=== PATIENT | male | born 1990 | race Caucasian/White ===

== ENCOUNTER → 2021-11-12 | Outpatient (CLI) | payer OTHER, SELFPAY ==
[2021-11-12 13:44] LABS: Absolute Lymphocyte Count 2.82 X10^3/uL (0.83-4.51); Absolute Neutrophil Count 3.8 X10^3/uL (2.0-7.7); Basophil# 0.07 X10^3/uL; Basophil% 0.9 % (0-1); Eosinophils% 3.9 % (0-5); Erythrocyte Sedimentation Rate 11 mm/hr (0-20); Hematocrit 42.7 % (40-54); Hemoglobin 14.1 g/dL (13.0-16.5); Lymphocyte # 2.82 X10^3/ul (0.83-4.51); Lymphocyte % 36.9 % (19-41); Mean Corpuscular Hgb 27.5 pg (27.0-32.0); Mean Corpuscular Volume 83.4 fL (80-94); Mean Platelet Vol. 10.4 fl (6.2-12.0); Monocyte# 0.64 X10^3/uL; Monocyte% 8.4 % (0-10); NRBC Flagged by Analyzer 0 % (0-5); Neutrophil # 3.77 X10^3/uL (2.7-7.7); Neutrophil % 49.4 % (47-70); Platelet Count 240 K/mm3 (150-450); RBC Distribution Width CV 13.7 % (11.6-14.6); RBC Distribution Width SD 41.6 fl (35.1-43.9); Red Blood Count 5.12 M/mm3 (4.6-6.2); White Blood Count 7.6 K/mm3 (4.4-11.0)
[2021-11-12 14:14] LABS: AST(SGOT) 27 U/L (15-37); Alanine Aminotransfer ALT/SGPT 64 U/L (16-61); Albumin, Serum 3.9 g/dL (3.2-5.0); Alkaline Phosphatase 56 U/L (45-117); Anion Gap 7 (5-15); BUN 15 mg/dL (7-18); BUN/Creat Ratio 18.3 RATIO (10-20); CRP < 2.90 mg/L (0.0-3.0); Calcium,Total 9.3 mg/dL (8.5-10.1); Chloride 107 mmol/L (98-107); Creatinine, Serum 0.82 mg/dL (0.70-1.30); EST Glomerular Filtration Rate 115 mL/min (>60); Est Glom Filt Rate - Afr Amer 139 mL/min (>60); Globulin 3.8 g/dL (2.2-4.2); Glucose 92 mg/dL (74-106); LDH 177 U/L (87-241); Potassium 3.8 mmol/L (3.5-5.1); Protein, Total 7.7 g/dL (6.4-8.2); Sodium Level 139 mmol/L (136-145)
[2021-11-12 15:00] LABS: Hepatitis B Surface Antibody Non-Reactive; Rubella IgG Reactive (Nonreactive)
[2021-11-14 15:08] LABS: Anti-Centromere B Ab <0.2 AI (0.0-0.9); Anti-Chromatin <0.2 AI (0.0-0.9); Anti-Jo <0.2 AI (0.0-0.9); Anti-Scleroderma-70 AB <0.2 AI (0.0-0.9); RNP Ab 0.5 AI (0.0-0.9); SJOGREN'S Anti-SS-A test < 0.2 AI (0.0-0.9); SJOGREN'S Anti-SS-B test < 0.2 AI (0.0-0.9); Smith Ab <0.2 AI (0.0-0.9)
[2021-11-14 16:09] LABS: Endomysial Antibody IgA Negative (Negative)
[2021-11-15 15:32] LABS: Anti-dsDNA Ab <1 IU/mL (0-9)
[2021-11-15 15:34] LABS: Immunoglobulin A 278 mg/dL (90-386); t-Transglutaminase IgA <2 U/mL (0-3)
[2021-11-20 17:07] LABS: Albumin 4.1 g/dL (2.9-4.4); Alpha-1-Globulins 0.3 g/dL (0.0-0.4); Alpha-2-Globulins 0.7 g/dL (0.4-1.0); Cytoplasmic Ab (C-ANCA) <1:20 titer (Neg:<1:20); Gamma Globulin 1.1 g/dL (0.4-1.8); HEPATITIS B SURFACE AG Negative (Negative); Hep C Antibodies <0.1 s/co ratio (0.0-0.9); Hepatitis A IgM Antibody Negative (Negative); Hepatitis B Core AB IgM Negative (Negative); Immunoglobulin A 283 mg/dL (90-386); Immunoglobulin E 21 IU/mL (6-495); Immunoglobulin G 1123 mg/dL (603-1613); Immunoglobulin M 117 mg/dL (20-172); PROEL- TOTAL PROTEIN 7.2 g/dL (6.0-8.5); QNTFERON TB Mitogen Value > 10.00 IU/mL (.); QNTFERON TB Nil Value 0.08 IU/mL (.); QNTFERON TB1+ Ag Value 0.07 IU/mL (.); QNTFERON TB2+ Ag Value 0.08 IU/mL (.)
[2021-11-21 10:43] LABS: B. pertussis IgG 1.74 index (0.00-0.94); Mumps Antibody,IgG < 9.0 AU/mL (Immune >10.9); Perinuclear Ab (P-ANCA) <1:20 titer (Neg:<1:20); QNTIFERON TB Positive Criteria Negative (Negative); V-Zoster IgG (Immunity) 2986 index (Immune >165)
== END | disposition home or self-care (01) ==
PROVIDERS: PCP Physician Assistant; Visit Provider Nurse Practitioner Adult Health
DX: K62.5 Hemorrhage of anus and rectum (principal); K52.9 Noninfective gastroenteritis and colitis, unspecified
CPT/HCPCS: 36415; 80053; 80074; 82784; 82785; 83516; 83615; 84165; 85025; 85652; 86140; 86225; 86235; 86255; 86256; 86334; 86480; 86706; 86735; 86762; 86787

== ENCOUNTER → 2021-12-19 | Outpatient (CLI) | payer OTHER, SELFPAY ==
--- NOTE | 2021-12-19 17:45 | RAD_ITS ---
STUDY: X-RAY - ABDOMEN/PELVIS REASON FOR EXAM: Male, 31 years old. Patiency capsule -- Colitis TECHNIQUE: Two AP supine views of the abdomen and pelvis. COMPARISON: None. FINDINGS: Normal visualized lung bases. There is an unremarkable bowel gas pattern. There is no demonstrated free abdominal air. The visualized liver, spleen and kidneys are grossly normal in size and morphology. Normal soft tissue structures. Normal visualized osseous structures. RAD/Abdomen Single View IMPRESSION: Normal x-ray examination of the abdomen and pelvis. Electronically Signed: Amrita Sousa MD at 0:14 EST ,
== END | disposition home or self-care (01) ==
LOC: RAD 17:26
PROVIDERS: PCP Physician Assistant; Referring Provider Nurse Practitioner Adult Health; Visit Provider Nurse Practitioner Adult Health
DX: K52.9 Noninfective gastroenteritis and colitis, unspecified (principal)
CPT/HCPCS: 74018

== ENCOUNTER 2021-12-26 16:23 | Outpatient (CLI) | payer OTHER, SELFPAY ==
--- NOTE | 2021-12-26 16:27 | CT_ITS ---
EXAM: CT ABDOMEN AND PELVIS WITH INTRAVENOUS CONTRAST CLINICAL INDICATION: Crohn''s -- enterography TECHNIQUE: Helically acquired images were obtained of the abdomen and pelvis with intravenous contrast. This CT exam was performed using one or more of the following dose reduction techniques: automated exposure control, adjustment of the mA and/or kV according to patient size, and/or use of iterative reconstruction technique. This report was created using [employer] report generation technology. CONTRAST: Oral and amp; IV BREEZA NEUTRAL and amp; 100mL Isovue-300 COMPARISON: None. FINDINGS: LOWER THORAX: Unremarkable. Lung bases are clear. No cardiomegaly. No significant pericardial effusion. ABDOMEN: LIVER: Unremarkable. Homogeneous. No focal mass. GALLBLADDER AND BILE DUCTS: Unremarkable. No calcified gallstones. No gallbladder distention or wall edema. No intra- or extrahepatic biliary ductal dilation. PANCREAS: Unremarkable. No focal cystic or solid mass. SPLEEN: Unremarkable. Normal size without focal cystic or solid mass. ADRENALS: 3.1 x 2.1 x 2.9 cm left adrenal nodule. CT density measures 44 Hounsfield units. Calcification is noted superiorly. KIDNEYS AND URETERS: Unremarkable. Normal renal size and position. No hydronephrosis. STOMACH AND BOWEL: Unremarkable. No stomach or bowel distention. No focal inflammatory change. PELVIS: APPENDIX: Normal visualized appendix. BLADDER: Unremarkable. REPRODUCTIVE: Unremarkable as visualized. No mass. ABDOMEN and PELVIS: INTRAPERITONEAL SPACE: Unremarkable. No ascites or other fluid collection. No free air. BONES/JOINTS: Unremarkable. No suspicious lytic or blastic abnormality. SOFT TISSUES: Unremarkable. No discrete abdominal or pelvic wall hernia. VASCULATURE: Unremarkable. Abdominal aorta is normal in caliber. LYMPH NODES: Unremarkable. No enlarged lymph nodes. CT/Abdomen/Pelvis WITH Contrast IMPRESSION: 1. No acute findings. 2. Nonspecific left adrenal nodule. ACR White Paper guidelines (Nguyen-Ge, et al. JACR 2017; 14(8):4374-2009) suggest a low dose, non-contrast adrenal CT or chemical-shift adrenal MRI follow-up study. Electronically Signed: Melanie Adamson MD at 18:17 EST Reading Location ID and State: [id number] / Tel , Service support ,
[2021-12-26 17:01] LABS: EGFR FINGERSTICK > 60.0000 mL/min (>60)
--- NOTE | 2022-01-13 15:02 | CASEMGMT ---
INCIDENTAL FINDINGS F/U 12/26/21 CT/Abdomen/Pelvis WITH Contrast IMPRESSION: 1.? No acute findings. 2.? Nonspecific left adrenal nodule.? ACR White Paper guidelines (Betsy et al. JACR 2017; 14(8):9483-4732) suggest a low dose, non-contrast adrenal CT or chemical-shift adrenal MRI follow-up study. 01/10/22 GI Visit Assessment and Plan (1) Crohn's disease:? Status: Acute ? ? ? Plan:? 31 yr old male with moderate to severe inflammatory Crohn's disease in the small bowel and colon. He has extraintestinal manifestations of fatigue and arthralgias. Reviewed results of testing so far with pt and . Will call them with capsule endoscopy result. Needs to submit the stool tests before we can start treatment with an advanced therapy. Plan is stelara 520 mg IV infusion, then Q8wks 90 mg SQ. Needs MMR and twinrix increase dicyclomine to 20 mg BID Continue pantoprazole 40 mg bid f/u 2-3 mos (2) Gastric polyps:? Status: Acute ? ? ? Plan:? No polyps on colonoscopy per records I reviewed therefore he doesn't have FAP. We will be repeating his colonoscopy next year to reevaluate his Crohn's. -TC to f/u regarding incidental findings. Pt did not answer. Complex Priest left a voicemail with name and phone contact information.
== END 2021-12-26 23:59 | disposition home or self-care (01) ==
LOC: CT 16:26
PROVIDERS: PCP Physician Assistant; Referring Provider Nurse Practitioner Adult Health; Visit Provider Nurse Practitioner Adult Health
DX: K50.90 Crohn's disease, unspecified, without complications (principal); K62.5 Hemorrhage of anus and rectum; R19.7 Diarrhea, unspecified
CPT/HCPCS: 74177; Q9967

== ENCOUNTER 2022-01-10 15:27 | Outpatient (CLI) | payer OTHER, SELFPAY ==
[2022-01-14 21:00] LABS: Calprotectin, Stool 27 ug/g (0-120)
== END 2022-01-10 23:59 | disposition home or self-care (01) ==
LOC: LAB 15:28
PROVIDERS: Nurse Practitioner Adult Health; PCP Physician Assistant; Visit Provider Internal Medicine Gastroenterology
DX: K52.9 Noninfective gastroenteritis and colitis, unspecified (principal); K62.5 Hemorrhage of anus and rectum
CPT/HCPCS: 83630; 83993; 87493; 87506

== ENCOUNTER → 2022-03-28 | Outpatient (CLI) | payer OTHER, SELFPAY ==
[2022-03-28 10:44] VITALS: BP 136/81; PULSE 71; RESP 16; TEMP 36.4; BMI 27.2
[2022-03-28] MEDS: 0.9% NaCl Peripheral Flush Adult/Peds IV (11:04)
[2022-03-28] MEDS: 0.9% NaCl IVPB Med Flush (250 mL) 15 ML IV (11:04)
[2022-03-28 12:21] VITALS: BP 111/74; PULSE 59; RESP 16; TEMP 36.4
== END | disposition home or self-care (01) ==
LOC: MEDOUTP 10:31
PROVIDERS: PCP Physician Assistant; Referring Provider Internal Medicine Gastroenterology; Visit Provider Internal Medicine Gastroenterology
DX: K50.90 Crohn's disease, unspecified, without complications (principal)
CPT/HCPCS: 96372; J7050; A4216; J3358

== ENCOUNTER → 2022-04-30 | Outpatient (CLI) | payer OTHER, SELFPAY ==
--- NOTE | 2022-04-30 14:46 | NEURO ---
NCS and/or EMG Patient Report Ordering Doctor: Shaheen Francois DATE OF SERVICE: 04/30/22 Jacob presents for electrodiagnostic testing of the right upper limb. He reports sharp pains in the neck radiating into the right arm. Electrodiagnostic findings: Right median motor nerve demonstrates normal distal latency, amplitude and conduction velocity. Normal right ulnar motor response. Normal median and ulnar F waves. Normal sensory responses. On needle EMG, all muscles tested in the right upper limb, as well as the cervical paraspinals showed no evidence of denervation with normal motor unit action potentials. Electrodiagnostic assessment: This is a normal electrodiagnostic study of the right upper limb. There is no electrodiagnostic evidence for peripheral neuropathy or cervical radiculopathy.
== END | disposition home or self-care (01) ==
PROVIDERS: PCP Physician Assistant; Referring Provider Orthopaedic Surgery; Visit Provider Orthopaedic Surgery
DX: M48.02 Spinal stenosis, cervical region (principal); M47.22 Other spondylosis with radiculopathy, cervical region; R20.2 Paresthesia of skin
CPT/HCPCS: 95886; 95910

== ENCOUNTER → 2022-07-08 | Outpatient (CLI) | payer OTHER, SELFPAY ==
[2022-07-08 15:47] LABS: Erythrocyte Sedimentation Rate 2 mm/hr (0-20)
[2022-07-08 15:48] LABS: Absolute Lymphocyte Count 3.82 X10^3/uL (0.83-4.51); Absolute Neutrophil Count 4.5 X10^3/uL (2.0-7.7); Eosinophil# 0.51 X10^3/uL; Eosinophils% 5.3 % (0-5); Hematocrit 43.9 % (40-54); Hemoglobin 14.4 g/dL (13.0-16.5); Lymphocyte # 3.82 X10^3/ul (0.83-4.51); Lymphocyte % 39.6 % (19-41); Mean Corp Hgb Conc 32.8 g/dL (32-36); Mean Corpuscular Hgb 28.6 pg (27.0-32.0); Mean Corpuscular Volume 87.3 fL (80-94); Mean Platelet Vol. 10.4 fl (6.2-12.0); Monocyte# 0.69 X10^3/uL; Monocyte% 7.2 % (0-10); NRBC Flagged by Analyzer 0 % (0-5); Neutrophil # 4.48 X10^3/uL (2.7-7.7); Neutrophil % 46.4 % (47-70); Platelet Count 203 K/mm3 (150-450); RBC Distribution Width CV 13.1 % (11.6-14.6); RBC Distribution Width SD 41.7 fl (35.1-43.9); Red Blood Count 5.03 M/mm3 (4.6-6.2); White Blood Count 9.7 K/mm3 (4.4-11.0)
[2022-07-08 16:16] LABS: ALB/GLOB Ratio 1.3 RATIO (0.9-2.4); AST(SGOT) 20 U/L (15-37); Alanine Aminotransfer ALT/SGPT 27 U/L (16-61); Albumin, Serum 4.3 g/dL (3.2-5.0); Alkaline Phosphatase 44 U/L (45-117); Anion Gap 6 (5-15); BUN 18 mg/dL (7-18); BUN/Creat Ratio 24.2 RATIO (10-20); CRP < 2.90 mg/L (0.0-3.0); Calcium,Total 9.1 mg/dL (8.5-10.1); Chloride 108 mmol/L (98-107); Creatinine, Serum 0.74 mg/dL (0.70-1.30); EST Glomerular Filtration Rate 128 mL/min (>60); Est Glom Filt Rate - Afr Amer 154 mL/min (>60); Globulin 3.2 g/dL (2.2-4.2); Glucose 82 mg/dL (74-106); Potassium 3.6 mmol/L (3.5-5.1); Protein, Total 7.5 g/dL (6.4-8.2); Sodium Level 140 mmol/L (136-145)
== END | disposition home or self-care (01) ==
LOC: LAB 15:04
PROVIDERS: PCP Physician Assistant; Visit Provider Nurse Practitioner Adult Health
DX: K50.90 Crohn's disease, unspecified, without complications (principal); K31.7 Polyp of stomach and duodenum
CPT/HCPCS: 36415; 80053; 85025; 85652; 86140

== ENCOUNTER 2022-10-21 05:29 | Day surgery (SDC) | payer OTHER, SELFPAY ==
[2022-10-21] VITALS (7 sets, daily range): BP systolic 115–132; BP diastolic 62–70; PULSE 60–84; RESP 16–18; TEMP 36.1–36.6; O2SAT 98–100; BMI 26.9
--- NOTE | 2022-10-21 | GASB_PTH ---
PATIENT: JACKELIN WHALEN LOC: EN U#:[id number] AGE/SX: 32/M ROOM: RE10/21/[address]: Dr. Rio Brewer DO : 1990 BED: DIS: 10/21/2022 SPEC #: [id number] RECD: 10/21/22 12:24 STATUS: MIKE RADHA #: [id number] GABRIELE: 10/21/22 00:[address]: Rio Brewer DEPT: SURGICAL PATHOLOGY RECD BY: Elbert Edwards ENTERED: 10/21/22 12:25 SP TYPE: Gastric Bx OTHR DR: TED Otero Tissues: A - Gastric mucous membrane B - Duodenum, NOS C - Gastric mucous membrane D - Esophageal mucous membrane E - Sigmoid colon biopsy F - Cecum, NOS G - Ileum, NOS H - COLON BIOPSY I - SPLENIC FLEXURE J - Rectum, NOS K - Anus, NOS Procedures: Surgery Specimen Level IV HEADER OPERATION: Colonoscopy, EGD ([facility]), biopsy, polypectomy PRE-OP DIAGNOSIS: Crohn's disease TISSUE SUBMITTED: A - Gastric body biopsy, B - Duodenum polyp biopsy, C - Gastric cardia polyps biopsy, D - Random esophagus biopsy, E - Sigmoid polyp, F - Cecal polyp biopsy, G - Terminal ileum biopsy, H - Random colon biopsy, I - Splenic flexure polyp, J - Rectosigmoid junction polyp biopsy, K - Anus polyp biopsy MICROSCOPIC DIAGNOSIS A. Gastric body, biopsy: Mild gastritis. See microscopic description and comment. B. Duodenal polyp, biopsy: Fragments of tubular adenoma. C. Gastric cardia polyps, biopsy: Fragments of fundic gland polyp. D. Esophagus, random biopsy: Fragments of squamous mucosa with changes consistent with eosinophilic esophagitis. See comment. E. Sigmoid polyp, biopsy: Tubular adenoma. F. Cecal polyp, biopsy: Tubular adenoma. G. Terminal ileum, biopsy: Fragments of small intestinal mucosa, no pathologic diagnosis. H. Colon, random biopsy: Fragments of colonic mucosa with focal tubular adenomatous changes. See comment. I. Splenic flexure polyp, biopsy: Serrated adenoma. J. Rectosigmoid junction polyp, biopsy: Tubular adenoma. K. Anus polyp, biopsy: Fragments of tubular adenoma. SJ:rg 10/22/2022 COMMENT A. The results of immunohistochemistry for Helicobacter pylori will be reported separately ([id number]). D. Increased number of eosinophils (>20 per high power) are noted consistent with eosinophilic esophagitis. H. One fragment shows focal tubular adenomatous changes. Additional fragments do not show any significant histopathologic abnormality. MICROSCOPIC DESCRIPTION Slides are reviewed. A. The specimen shows fragments of gastric mucosa with chronic inflammatory cell infiltrates in the lamina propria consisting of lymphocytes and plasma cells, consistent with mild chronic gastritis. GROSS DESCRIPTION A - Received in fixative is one container labeled with the patient's name and designated gastric body biopsy. The specimen consists of two irregular fragments of light garrett soft tissue that in aggregate measure 0.6 x 0.3 x 0.1 cm. The specimen is totally submitted in one cassette. B - Received in fixative is one container labeled with the patient's name and designated duodenum polyp biopsy. The specimen consists of two irregular fragments of light garrett soft tissue that in aggregate measure 0.8 x 0.4 x 0.1 cm. The specimen is totally submitted in one cassette. C - Received in fixative is one container labeled with the patient's name and designated gastric cardia polyps. The specimen consists of two irregular fragments of light garrett soft tissue that in aggregate measure 0.4 x 0.3 x 0.1 cm. The specimen is totally submitted in one cassette. D - Received in fixative is one container labeled with the patient's name and designated random esophagus biopsy. The specimen consists of multiple irregular fragments of light garrett soft tissue that in aggregate measure 0.6 x 0.3 x 0.1 cm. The specimen is totally submitted in one cassette. E - Received in fixative is one container labeled with the patient's name and designated sigmoid polyp. The specimen consists of multiple irregular fragments of light garrett soft tissue that in aggregate measure 0.6 x 0.3 x 0.1 cm. The specimen is totally submitted in one cassette. F - Received in fixative is one container labeled with the patient's name and designated cecal polyp biopsy. The specimen consists of one irregular fragment of light garrett soft tissue that measures 0.3 x 0.3 x 0.1 cm. The specimen is totally submitted in one cassette. G - Received in fixative is one container labeled with the patient's name and designated terminal ileum biopsy. The specimen consists of multiple irregular fragments of light garrett soft tissue that in aggregate measure 1.3 x 0.5 x 0.1 cm. The specimen is totally submitted in one cassette. H - Received in fixative is one container labeled with the patient's name and designated random colon biopsy. The specimen consists of multiple irregular fragments of light garrett soft tissue that in aggregate measure 1.2 x 0.5 x 0.1 cm. The specimen is totally submitted in one cassette. I - Received in fixative is one container labeled with the patient's name and designated splenic flexure polyp. The specimen consists of a pink-red polyp measuring 0.9 x 0.7 x 0.5 cm. The presumed base is inked. The polyp is bisected and submitted entirely in one cassette. J - Received in fixative is one container labeled with the patient's name and designated rectosigmoid junction polyp biopsy. The specimen consists of one irregular fragment of light garrett soft tissue that measures 0.3 x 0.3 x 0.1 cm. The specimen is totally submitted in one cassette. K - Received in fixative is one container labeled with the patient's name and designated anus polyp biopsy. The specimen consists of multiple irregular fragments of light garrett soft tissue that in aggregate measure 1.2 x 0.3 x 0.1 cm. The specimen is totally submitted in one cassette. / SJ:rg 10/21/2022 TC: CPT: 46126 x11
[2022-10-21] MEDS: Lactated Ringers 1,000 ML 15 ML IV (05:56)
--- NOTE | 2022-10-21 06:30 | IMM_PTH ---
PATIENT: JACKELIN WHALEN LOC: EN U#:[id number] AGE/SX: 32/M ROOM: RE10/21/[address]: Dr. Rio Brewer DO : 1990 BED: DIS: 10/21/2022 SPEC #: [id number] RECD: 10/21/22 13:29 STATUS: MIKE RADHA #: [id number] GABRIELE: 10/21/22 06:[address]: Rio Brewer DEPT: IMMUNOHISTOCHEMISTRY RECD BY: Sabrina Soto ENTERED: 10/21/22 13:30 SP TYPE: IMMUNO OTHR DR: TED Otero Tissues: A - Stomach, NOS Procedures: H Pylori (initial) PHYSICIAN & INSTITUTION [place] [id number] SPECIMEN INFORMATION: Tissue Source: A - Gastric body Clinical Info: Crohn's disease Specimen Number: [id number] CPT code: 49477 METHODOLOGY: Deparaffinized sections of prefer/formalin-fixed tissue or PAP/DQ stained slides are incubated with monoclonal/polyclonal antibodies/oligonucleotide probes. Localization is made via biotin free immunoperoxidase method. Appropriate controls are performed and reacted as expected. Results on target cell population are indicated in the following table: RESULTS: ANTIBODY / CLONE RESULT Block A H Pylori (polyclonal) negative These tests were developed and their performance characteristics determined by [facility]. They may not have been cleared or approved by the U.S. Food and Drug Administration. The FDA has determined that such clearance or approval is not necessary. The above immunohistochemical/dualISH markers are ordered and reviewed by the Pathologist. INTERPRETATION: A. Gastric body, biopsy: Negative for Helicobacter pylori organisms. MICHAEL:kraig 10/22/2022
--- NOTE | 2022-10-21 06:34 | HP.PCM_ITS ---
History and Physical Date of Admission: 10/21/22 JACKELIN WHALEN, is a 32 M who presents to the office today for 3 month f/u Crohn's. He is definitely improved now that he is taking Stelara. After the induction phase he has had one injection, that was on May 23. Bowels are much closer to normal now--only rare diarrhea now, eg yesterday after eating a jalapeno bratwurst. Much less lower abd pain, still taking dicyclomine 20 mg bid which is very helpful. No melena or hematochezia. No change in arthralgias. No heartburn on pantoprazole 40 mg bid. Crohn's disease -- moderate to severe inflammatory Crohn's disease in the small bowel and colon. He has extraintestinal manifestations of fatigue and arthralgias. Stelara 520 mg IV infusion for induction on 03/28/22, then he will take Stelara Q8wks 90 mg SQ. He was hospitalized while in [place] in 10/2021 for rectal bleed, diarrhea, abdominal pain; had EGD and colonoscopy which showed i nnumerable gastric polyps, terminal ileitis and colitis sparing the rectum suspicious for Crohn's disease.?Pathology suspicious for IBD. 11/2021 [facility] panel suggestive of Crohn's disease with high risk of aggressive disease behavior. 12/2021 CT enterography unremarkable (except for adrenal nodule which patient was already aware of). 01/2022 stool tests: calprotectin 27 normal, negative lactoferrin, negative enteric pathogens, negative C diff. 11/2021 esr 11, crp <2.90. No rashes, no eye or mouth symptoms. He does have chronic joint pains, armen wrists and knees. He lost 20 lbs in 2021 unintentionally, that weight loss stabilized. ROS Const Constitutional: Positive for weight change; No fatigue ENT ENT: No difficulty swallowing Gastro GI: Positive for abdominal pain; No belching, bloating, change in bowel habits, change in stool character, coffee ground emesis, constipation, cramping, diarrhea, heartburn, difficulty swallowing, feeling full early, excessive flatus, incontinent of stools, Vomiting blood/hematemesis, Blood in stool, loose stools, Black,tarry stools, nausea/dyspepsia, pain with swallowing, vomiting or other Musc Musculoskeletal: Positive for back pain, muscle cramps, stiffness and Arthritis; No joint pain Skin Skin: No yellowing of the eye or itchy eyes Psych Psychiatric: No anxiety and No depression Endo Endocrine: Positive for weight change; No fatigue Aller/Imm Allergy/Immunologic: No itchy eyes José Antonio/Lymp Hematologic/Lymphatic: No easy bleeding or easy bruising Exam Const General: cooperative, healthy appearing and comfortable Nutritional Appearance: average body habitus Orientation: alert, awake and oriented x3 Quality Reporting Tobacco Screening ([facility] 138) Smoking Status: Former smoker Assessment and Plan Assessment and Plan (1) Crohn's disease: Status: Chronic Plan: 32 yr old male with moderate to severe Crohn's of small bowel and colon. Significant improvement in diarrhea with Stelara. Less abd pain with dicyclomine. Will schedule EGD and colonoscopy for 10/2022. Labs today. Orders: Orders Comprehensive Metabolic Profil Today K31.7 - Polyp of stomach and duodenum, K50.90 - Crohn's disease, unspecified, without complications CRP Today K31.7 - Polyp of stomach and duodenum, K50.90 - Crohn's disease, unspecified, without complications CBC W/Diff, Automated Today K31.7 - Polyp of stomach and duodenum, K50.90 - Crohn's disease, unspecified, without complications Erythrocyte Sed Rate Today K31.7 - Polyp of stomach and duodenum, K50.90 - Crohn's disease, unspecified, without complications Calprotectin, Stool Today K31.7 - Polyp of stomach and duodenum, K50.90 - Croh n's disease, unspecified, without complications Stool Lactoferrin/WBC Today K31.7 - Polyp of stomach and duodenum, K50.90 - Crohn's disease, unspecified, without complications, K58.9 - Irritable bowel syndrome without diarrhea I have examined the patient and the H&P has been reviewed. There are no clinical changes since date of exam.
--- NOTE | 2022-10-21 07:33 | OP.EGD_ITS ---
Patient Name: Jacob Marroquin Procedure Date: 10/21/2022 6:24 AM Date of : 1990 Age: 32 Procedure: Upper GI endoscopy Indications: Epigastric abdominal pain, Functional Dyspepsia Providers: Rio Brewer DO Medicines: Monitored Anesthesia Care Patient Profile: This is a 32 year old male. Refer to note in patient chart for documentation of history and physical. Patient has symptoms of acute epigastric abdominal pain and chronic dyspepsia. Complications: No immediate complications. Procedure: Pre-Anesthesia Assessment: - Prior to the procedure, a History and Physical was performed, and patient medications and allergies were reviewed. The patient is competent. The risks and benefits of the procedure and the sedation options and risks were discussed with the patient. All questions were answered and informed consent was obtained. Patient identification and proposed procedure were verified by the physician in the pre-procedure area. Mental Status Examination: normal. Airway Examination: normal oropharyngeal airway and neck mobility. Respiratory Examination: clear to auscultation. CV Examination: normal. Prophylactic Antibiotics: The patient does not require prophylactic antibiotics. Prior Anticoagulants: The patient has taken no anticoagulant or antiplatelet agents. ASA Grade Assessment: II - A patient with mild systemic disease. After reviewing the risks and benefits, the patient was deemed in satisfactory condition to undergo the procedure. The anesthesia plan was to use monitored anesthesia care (MAC). Immediately prior to administration of medications, the patient was re-assessed for adequacy to receive sedatives. The heart rate, respiratory rate, oxygen saturations, blood pressure, adequacy of pulmonary ventilation, and response to care were monitored throughout the procedure. The physical status of the patient was re-assessed after the procedure. After obtaining informed consent, the endoscope was passed under direct vision. Throughout the procedure, the patient's blood pressure, pulse, and oxygen saturations were monitored continuously. The Colonoscope was introduced through the mouth, and advanced to the second part of duodenum. The upper GI endoscopy was accomplished without difficulty. The patient tolerated the procedure well. Scope In: 6:41:02 AM Scope Out: 6:47:59 AM Total Procedure Duration Time 0 hours 6 minutes 57 seconds Findings: Mucosal changes including ringed esophagus, feline appearance, longitudinal furrows and small-caliber esophagus were found in the mid esophagus and in the distal esophagus. Biopsies were obtained from the proximal and distal esophagus with cold forceps for histology of suspected eosinophilic esophagitis. Verification of patient identification for the specimen was done. Estimated blood loss was minimal. Multiple medium hyperplastic polyps with no bleeding and no stigmata of recent bleeding were found in the cardia, in the gastric fundus and in the gastric body. The polyp was removed with a cold snare. Resection and retrieval were complete. Verification of patient identification for the specimen was done. Estimated blood loss was minimal. Localized mild inflammation characterized by erythema was found in the gastric antrum. Biopsies were taken with a cold forceps for histology. Verification of patient identification for the specimen was done. Estimated blood loss was minimal. Biopsies were taken with a cold forceps for Helicobacter pylori testing. Verification of patient identification for the specimen was done. Estimated blood loss was minimal. Multiple 5 mm sessile polyps with no bleeding were found in the duodenal bulb, in the first portion of the duodenum, in the second portion of the duodenum and in the third portion of the duodenum. The polyp was removed with a jumbo cold forceps. Resection and retrieval were complete. Estimated blood loss: none. Impression: - Esophageal mucosal changes consistent with eosinophilic esophagitis. - Multiple gastric polyps. Resected and retrieved. - Chronic gastritis. Biopsied. - Multiple duodenal polyps. Resected and retrieved. - Biopsies were taken with a cold forceps for evaluation of eosinophilic esophagitis. Recommendation: - Discharge patient to home. - Resume previous diet. - Continue present medications. - Await pathology results. - Check gastrin level, food allergy testing, possible genetic testing Procedure Code(s): --- Professional --- 49700, Esophagogastroduodenoscopy, flexible, transoral; with removal of tumor(s), polyp(s), or other lesion(s) by snare technique 81244, 59,51, Esophagogastroduodenoscopy, flexible, transoral; with biopsy, single or multiple CPT copyright 2021 [employer]. All rights reserved. The codes documented in this report are preliminary and upon vice president of business development review may be revised to meet current compliance requirements. Rio Brewer DO 10/21/2022 7:32:03 AM This report has been signed electronically. Number of Addenda: 0 Note Initiated On: 10/21/2022 6:24 AM
--- NOTE | 2022-10-21 07:33 | OP.CCLET_ITS ---
10/21/2022 Hyun Stone Re : Upper GI endoscopy procedure for Jacob Sosa Chase This procedure was performed on Friday, October 21, 2022. My impressions and recommendations are as follows: Impressions : - Esophageal mucosal changes consistent with eosinophilic esophagitis. - Multiple gastric polyps. Resected and retrieved. - Chronic gastritis. Biopsied. - Multiple duodenal polyps. Resected and retrieved. - Biopsies were taken with a cold forceps for evaluation of eosinophilic esophagitis. Recommendations : - Discharge patient to home. - Resume previous diet. - Continue present medications. - Await pathology results. - Check gastrin level, food allergy testing, possible genetic testing My findings are described in the full procedure note, which is enclosed. If I can be of further assistance, please feel free to contact me at . Sincerely, Rio Brewer, 10/21/2022 7:32:03 AM This report has been signed electronically.
--- NOTE | 2022-10-21 07:39 | OP.COLON_ITS ---
Patient Name: Jacob Marroquin Procedure Date: 10/21/2022 6:48 AM Date of : 1990 Age: 32 Procedure: Colonoscopy Indications: Suspected Crohn's disease of the colon Providers: Rio Brewer DO Medicines: Monitored Anesthesia Care Patient Profile: This is a 32 year old male. Refer to note in patient chart for documentation of history and physical. Patient has symptoms of acute epigastric abdominal pain and chronic dyspepsia. Last Colonoscopy: date unknown. Unable to locate last colonoscopy report. Complications: No immediate complications. Procedure: Pre-Anesthesia Assessment: - Prior to the procedure, a History and Physical was performed, and patient medications and allergies were reviewed. The patient is competent. The risks and benefits of the procedure and the sedation options and risks were discussed with the patient. All questions were answered and informed consent was obtained. Patient identification and proposed procedure were verified by the physician in the pre-procedure area. Mental Status Examination: normal. Airway Examination: normal oropharyngeal airway and neck mobility. Respiratory Examination: clear to auscultation. CV Examination: normal. Prophylactic Antibiotics: The patient does not require prophylactic antibiotics. Prior Anticoagulants: The patient has taken no anticoagulant or antiplatelet agents. ASA Grade Assessment: II - A patient with mild systemic disease. After reviewing the risks and benefits, the patient was deemed in satisfactory condition to undergo the procedure. The anesthesia plan was to use monitored anesthesia care (MAC). Immediately prior to administration of medications, the patient was re-assessed for adequacy to receive sedatives. The heart rate, respiratory rate, oxygen saturations, blood pressure, adequacy of pulmonary ventilation, and response to care were monitored throughout the procedure. The physical status of the patient was re-assessed after the procedure. After I obtained informed consent, the scope was passed under direct vision. Throughout the procedure, the patient's blood pressure, pulse, and oxygen saturations were monitored continuously. The Colonoscope was introduced through the anus and advanced to the terminal ileum. The colonoscopy was performed without difficulty. The patient tolerated the procedure well. The quality of the bowel preparation was adequate. The terminal ileum, ileocecal valve, appendiceal orifice, and rectum were photographed. Scope In: 6:50:22 AM Scope Withdrawal Time 0 hours 23 minutes 46 seconds Scope Out: 7:21:37 AM Total Procedure Duration Time 0 hours 31 minutes 15 seconds Findings: Hemorrhoids were found on perianal exam. Non-bleeding internal hemorrhoids were found during retroflexion. The hemorrhoids were Grade II (internal hemorrhoids that prolapse but reduce spontaneously). A 7 mm polyp was found in the anus. The polyp was sessile. The polyp was removed with a cold snare. Resection and retrieval were complete. Coagulation for hemostasis using heater probe was successful. Estimated blood loss was minimal. Five sessile polyps were found in the recto-sigmoid colon, sigmoid colon, splenic flexure and cecum. The polyps were 1 to 2 mm in size. These polyps were removed with a saline injection-lift technique using a hot snare. Resection and retrieval were complete. Area was tattooed with an injection of 0.1 mL of Abbie ink. An area of mildly congested mucosa was found in the recto-sigmoid colon, in the sigmoid colon and at the splenic flexure. Biopsies for histology were taken with a cold forceps from the ascending colon, right colon, left colon, transverse colon, right transverse colon, left transverse colon, descending colon, sigmoid colon and rectum for evaluation of microscopic colitis. A segmental area of the distal ileum was congested. Biopsies were taken with a cold forceps for histology. Verification of patient identification for the specimen was done. Estimated blood loss was minimal. Impression: - Hemorrhoids found on perianal exam. - Non-bleeding internal hemorrhoids. - One 7 mm polyp at the anus, removed with a cold snare. Resected and retrieved. Treated with a heater probe. - Five 1 to 2 mm polyps at the recto-sigmoid colon, in the sigmoid colon, at the splenic flexure and in the cecum, removed using injection-lift and a hot snare. Resected and retrieved. Tattooed. - Congested mucosa in the recto-sigmoid colon, in the sigmoid colon and at the splenic flexure. Biopsied. - Congested mucosa in the distal ileum. Biopsied. Recommendation: - Discharge patient to home. - Resume previous diet. - Continue present medications. - Await pathology results. - Repeat colonoscopy for surveillance based on pathology results. - Microsatellite stability testing for Ashby syndrome Procedure Code(s): --- Professional --- 94622, Colonoscopy, flexible; with removal of tumor(s), polyp(s), or other lesion(s) by snare technique 48221, 59, Colonoscopy, flexible; with biopsy, single or multiple 52623, Colonoscopy, flexible; with directed submucosal injection(s), any substance CPT copyright 2021 [employer]. All rights reserved. The codes documented in this report are preliminary and upon milk inspector review may be revised to meet current compliance requirements. Rio Brewer DO 10/21/2022 7:38:25 AM This report has been signed electronically. Number of Addenda: 0 Note Initiated On: 10/21/2022 6:48 AM
--- NOTE | 2022-10-21 07:39 | OP.CCLET_ITS ---
10/21/2022 Hyun Stone Re : Colonoscopy procedure for Jacob Marroquin Dealexy Stone This procedure was performed on Friday, October 21, 2022. My impressions and recommendations are as follows: Impressions : - Hemorrhoids found on perianal exam. - Non-bleeding internal hemorrhoids. - One 7 mm polyp at the anus, removed with a cold snare. Resected and retrieved. Treated with a heater probe. - Five 1 to 2 mm polyps at the recto-sigmoid colon, in the sigmoid colon, at the splenic flexure and in the cecum, removed using injection-lift and a hot snare. Resected and retrieved. Tattooed. - Congested mucosa in the recto-sigmoid colon, in the sigmoid colon and at the splenic flexure. Biopsied. - Congested mucosa in the distal ileum. Biopsied. Recommendations : - Discharge patient to home. - Resume previous diet. - Continue present medications. - Await pathology results. - Repeat colonoscopy for surveillance based on pathology results. - Microsatellite stability testing for Ashby syndrome My findings are described in the full procedure note, which is enclosed. If I can be of further assistance, please feel free to contact me at . Sincerely, Rio Brewer, 10/21/2022 7:38:25 AM This report has been signed electronically.
== END 2022-10-21 07:58 | disposition home or self-care (01) ==
LOC: EN 05:30 → AC 05:31
PROVIDERS: PCP Physician Assistant; Referring Provider Physician Assistant; Visit Provider Internal Medicine Gastroenterology
PROC: 0DJD8ZZ Inspection of Lower Intestinal Tract, Via Natural or Artificial Opening Endoscopic (ICD-10-PCS; CPT 45378; principal; 2022-10-21 06:25)
DX: K50.90 Crohn's disease, unspecified, without complications (principal); K63.5 Polyp of colon; K31.7 Polyp of stomach and duodenum; K63.89 Other specified diseases of intestine; K29.50 Unspecified chronic gastritis without bleeding; K30 Functional dyspepsia; K62.0 Anal polyp; K64.1 Second degree hemorrhoids; Z87.891 Personal history of nicotine dependence
CPT/HCPCS: 45385; 43239; 45380; 45381; 43251; 88305; 88342; J7120; A4648; J2405

== ENCOUNTER → 2022-11-07 | Outpatient (CLI) | payer OTHER, SELFPAY ==
[2022-11-12 17:08] LABS: Beef <0.10 kU/L (Class 0); Chocolate <0.10 kU/L (Class 0); Clam <0.10 kU/L (Class 0); Codfish <0.10 kU/L (Class 0); Corn <0.10 kU/L (Class 0); Egg, White <0.10 kU/L (Class 0); Egg, Whole <0.10 kU/L (Class 0); Peanut <0.10 kU/L (Class 0); Pork <0.10 kU/L (Class 0); SCALLOP <0.10 kU/L (Class 0); SESAME SEED <0.10 kU/L (Class 0); Shrimp <0.10 kU/L (Class 0); Soybean <0.10 kU/L (Class 0); Walnut, (Food) <0.10 kU/L (Class 0); Wheat <0.10 kU/L (Class 0)
== END | disposition home or self-care (01) ==
LOC: LAB 14:29
PROVIDERS: PCP Physician Assistant; Referring Provider Internal Medicine Gastroenterology; Visit Provider Internal Medicine Gastroenterology
DX: K50.90 Crohn's disease, unspecified, without complications (principal); D12.6 Benign neoplasm of colon, unspecified
CPT/HCPCS: 36415; 86003; 86005